=== PATIENT | female | born 1940 | race Caucasian/White ===

== ENCOUNTER 2017-02-24 21:47 | Emergency (ER) | payer MEDICARE ==
[2017-02-24] MEDS ORDERED: ACETAMINOPHEN 325 MG TAB ONE (22:09)
== END 2017-02-25 00:28 | disposition home or self-care (01) ==
LOC: EDH 21:47
DX: S00.83XA Contusion of other part of head, initial encounter (principal); G30.9 Alzheimer's disease, unspecified; F02.80 Dementia in other diseases classified elsewhere, unspecified severity, without behavioral disturbance, psychotic disturbance, mood disturbance, and anxiety; Z85.828 Personal history of other malignant neoplasm of skin; Z88.7 Allergy status to serum and vaccine; W01.0XXA Fall on same level from slipping, tripping and stumbling without subsequent striking against object, initial encounter; Y93.89 Activity, other specified; Y92.89 Other specified places as the place of occurrence of the external cause; Y99.8 Other external cause status
CPT/HCPCS: 70450; 70486

== ENCOUNTER 2017-05-24 19:33 | Observation (INO) | payer MEDICARE ==
[~2017-05-24] VITALS: Ht 167.6 cm; Wt 87.1 kg
[2017-05-24] MEDS ORDERED: ASPIRIN 325 MG TABLET ONE (20:09)
[2017-05-24 20:15] LABS: BASOPHILS % (AUTO) 0.9 % (0.0-5.0); EOSINOPHILS % (AUTO) 1.7 % (0.0-8.0); HEMATOCRIT 37.6 % (36-48); LYMPHOCYTES % (AUTO) 25.3 % (21.0-51.0); MEAN CORPUSCULAR HEMOGLOBIN 34.4 pg (27.0-33.0); MEAN CORPUSCULAR HGB CONC 33.8 g/dL (32.0-36.0); MONOCYTES % (AUTO) 9.7 % (3.0-13.0); NEUTROPHILS % (AUTO) 62.4 % (40.0-77.0); PLATELET COUNT (AUTO) 441 K/uL (130-400); RED BLOOD CELL COUNT(AUTO) 3.69 MIL/uL (4.00-5.50); RED CELL DISTRIBUTION WIDTH 12.7 % (11.0-15.5)
[2017-05-24 20:30] LABS: POTASSIUM 4.2 mmol/L (3.5-5.1)
[2017-05-24 20:32] LABS: INR 0.99 (0.85-1.15); PARTIAL THROMBOPLASTIN TIME 27.3 SEC (26.3-35.5); PROTHROMBIN TIME 10.4 SEC (9.6-11.6)
[2017-05-24 20:44] LABS: ALBUMIN 3.2 g/dL (3.5-5.0); BILIRUBIN,TOTAL 0.2 mg/dL (0.2-1.0); CREATINE KINASE MB 0.8 ng/mL (0.5-3.6); TOTAL PROTEIN, SERUM 6.7 g/dL (6.0-8.3)
[2017-05-24 21:08] LABS: APPEARANCE,URINE Clear (CLEAR); BILIRUBIN,URINE Negative (NEGATIVE); COLOR,URINE Yellow (YELLOW); GLUCOSE, URINE (UA) Negative (NEGATIVE); KETONES,URINE Negative (NEGATIVE); LEUKOCYTE ESTERASE ,URINE Negative (NEGATIVE); NITRATE,URINE Negative (NEGATIVE); OCCULT BLOOD,URINE Trace (NEGATIVE); PH,URINE 5.5 (5.0-8.0); PROTEIN,URINE Negative (NEGATIVE); UROBILINOGEN,URINE 0.2 mg/dL (0.2-1.0)
[2017-05-24 21:45] LABS: BACTERIA,URINE Rare /HPF (None Seen); RBC,URINE 0-1 /HPF (0-1); SQUAMOUS EPITHELIAL CELL,UR Few /HPF (0-2); WBC,URINE 0-1 /HPF (0-1)
[2017-05-24] MEDS ORDERED: MEMANTINE HCL 5 MG TABLET ONE (23:31)
[2017-05-24 23:57] VITALS: BP 161/85
[2017-05-25] MEDS ORDERED: GUAIFENESIN SUGAR-FREE 100 MG/5 ML UDCUP PO PRN (00:15)
[2017-05-25] MEDS ORDERED: CHOL500026 PO (00:25)
[2017-05-25] MEDS ORDERED: LORA10TA PO (00:25)
[2017-05-25] MEDS ORDERED: ASPI-1197 PO (00:25)
[2017-05-25] MEDS ORDERED: GLUC100019 PO (00:25)
[2017-05-25] MEDS ORDERED: XUD IH (00:25)
[2017-05-25] MEDS ORDERED: DOCU-275 PO (00:25)
[2017-05-25] MEDS ORDERED: MULT-961 PO (00:25)
[2017-05-25] MEDS ORDERED: HYDR500C2 PO (00:25)
[2017-05-25] MEDS ORDERED: CALC950T2 PO (00:25)
[2017-05-25] MEDS ORDERED: MEMA5TAB15 PO (00:25)
[2017-05-25] MEDS ORDERED: ESCI20TA36 PO (00:25)
[2017-05-25] MEDS ORDERED: DOXE10CA2 PO (00:25)
[2017-05-25] MEDS ORDERED: IBUP-2353 PO (00:25)
[2017-05-25] MEDS ORDERED: GUAI100S13 PO (00:25)
[2017-05-25] MEDS ORDERED: PHARMACY COMMUNICATION MISC SCH (00:30)
[2017-05-25] MEDS ORDERED: NITROGLYCERIN 1GM/1 INCH PACKET TD SCH (02:00)
[2017-05-25 02:44] LABS: CREATINE KINASE MB 0.8 ng/mL (0.5-3.6); CREATINE KINASE, TOTAL 58 U/L (21-232); MYOGLOBIN 62 ng/mL (10-92); TROPONIN I < 0.04 ng/mL (0.00-0.06)
[2017-05-25 03:48] VITALS: BP 133/74
[2017-05-25] MEDS: NITROGLYCERIN 1GM/1 INCH PACKET TD SCH ×2 (06:49→11:47)
[2017-05-25 07:00] VITALS: BP 125/63
[2017-05-25] MEDS ORDERED: IBUPROFEN 200 MG TABLET PO SCH (08:00)
[2017-05-25 08:27] LABS: CREATINE KINASE MB 1.1 ng/mL (0.5-3.6); CREATINE KINASE, TOTAL 64 U/L (21-232); MYOGLOBIN 52 ng/mL (10-92); TROPONIN I < 0.04 ng/mL (0.00-0.06)
[2017-05-25] MEDS ORDERED: ASPIRIN 81MG TAB.CHEW PO SCH (09:00)
[2017-05-25] MEDS ORDERED: GLUCOSAMINE-CHONDROITIN PO SCH (09:00)
[2017-05-25] MEDS ORDERED: LORATADINE 10 MG TABLET PO SCH (09:00)
[2017-05-25] MEDS ORDERED: CALCIUM CITRATE 200 MG PO SCH (09:00)
[2017-05-25] MEDS ORDERED: MULTIVITAMIN WITH MINERALS TABLET PO SCH (09:00)
[2017-05-25] MEDS ORDERED: CITALOPRAM 20 MG TABLET PO SCH (09:00)
[2017-05-25] MEDS ORDERED: **HM** VIT D3 1000 UNITS PO SCH (09:00)
[2017-05-25] MEDS ORDERED: XOPENEX 1.25 MG PO PRN (09:00)
[2017-05-25] MEDS ORDERED: HYDROXYUREA 500 MG CAP PO SCH (09:00)
[2017-05-25] MEDS ORDERED: METOPROLOL TARTRATE 25 MG TAB PO SCH (09:00)
[2017-05-25] MEDS ORDERED: ASPIRIN 325 MG TABLET PO SCH (09:00)
[2017-05-25] MEDS ORDERED: MEMANTINE HCL 5 MG TABLET PO SCH (09:00)
[2017-05-25] MEDS ORDERED: DOCUSATE SODIUM 100 MG CAP PO SCH (09:00)
[2017-05-25 11:00] VITALS: BP 133/64
[2017-05-25] MEDS ORDERED: DOXEPIN 10 MG PO SCH (21:00)
== END 2017-05-25 15:15 | disposition home or self-care (01) ==
LOC: EDH 19:33 → EDHIP 22:22 → 2AH 23:56
PROVIDERS: ADMIT Family Medicine; ATTEND Family Medicine
DX: R07.89 Other chest pain (principal); M19.90 Unspecified osteoarthritis, unspecified site; G30.9 Alzheimer's disease, unspecified; F02.80 Dementia in other diseases classified elsewhere, unspecified severity, without behavioral disturbance, psychotic disturbance, mood disturbance, and anxiety; F32.9 Major depressive disorder, single episode, unspecified; Z85.828 Personal history of other malignant neoplasm of skin
CPT/HCPCS: 36415 ×2; 71045; 80053; 81001; 82550 ×3; 82553 ×3; 83874 ×3; 84484 ×3; 85025; 85610; 85730; 93005; 99285; G0378 ×17

== ENCOUNTER 2017-11-03 16:00 | Emergency (ER) | payer MEDICARE ==
[~2017-11-03 16:00] MED LIST: ASPI-1197 PO; CALC950T2 PO; CHOL500026 PO; DOCU-275 PO; DOXE10CA2 PO; ESCI20TA36 PO; GLUC100019 PO; GUAI100S13 PO; HYDR500C2 PO; IBUP-2353 PO; LORA10TA PO; MEMA5TAB15 PO; MULT-961 PO; XUD IH
[2017-11-03 17:24] LABS: BASOPHILS % (AUTO) 1.1 % (0.0-5.0); EOSINOPHILS % (AUTO) 2.2 % (0.0-8.0); HEMATOCRIT 38.5 % (36-48); LYMPHOCYTES % (AUTO) 29.1 % (21.0-51.0); MEAN CORPUSCULAR HEMOGLOBIN 35.6 pg (27.0-33.0); MEAN CORPUSCULAR HGB CONC 33.9 g/dL (32.0-36.0); MONOCYTES % (AUTO) 9.5 % (3.0-13.0); NEUTROPHILS % (AUTO) 58.1 % (40.0-77.0); PLATELET COUNT (AUTO) 299 K/uL (130-400); RED BLOOD CELL COUNT(AUTO) 3.67 MIL/uL (4.00-5.50); RED CELL DISTRIBUTION WIDTH 13.7 % (11.0-15.5); WHITE BLOOD COUNT (AUTO) 4.4 K/uL (4.8-10.8)
[2017-11-03 17:36] LABS: CREATININE 0.9 mg/dL (0.5-1.5); POTASSIUM 3.3 mmol/L (3.5-5.1)
[2017-11-03 17:42] LABS: ALBUMIN 3.4 g/dL (3.5-5.0); BILIRUBIN,TOTAL 0.8 mg/dL (0.2-1.0); TOTAL PROTEIN, SERUM 6.4 g/dL (6.0-8.3)
== END 2017-11-03 19:04 | disposition home or self-care (01) ==
LOC: EDH 16:00
DX: R10.9 Unspecified abdominal pain (principal); G30.9 Alzheimer's disease, unspecified; F02.80 Dementia in other diseases classified elsewhere, unspecified severity, without behavioral disturbance, psychotic disturbance, mood disturbance, and anxiety; M19.90 Unspecified osteoarthritis, unspecified site; F32.9 Major depressive disorder, single episode, unspecified; Z90.710 Acquired absence of both cervix and uterus; Z88.8 Allergy status to other drugs, medicaments and biological substances
CPT/HCPCS: 36415; 74176; 80053; 83690; 85025